=== PATIENT | female | born 1995 | race African-American/Black ===

== ENCOUNTER 2020-06-10 09:21 | Emergency (ER) | payer OTHER, SELFPAY ==
[2020-06-10 09:30] VITALS: BP 127/62; PULSE 79; RESP 16; TEMP 37.6; O2SAT 100
--- NOTE | 2020-06-10 09:35 | ED.FEMALEGU ---
HPI - Female Genitourinary General Chief complaint: Urogenital-Female Stated complaint: female problems Time Seen by Provider: 06/10/20 09:36 Source: patient and RN notes reviewed Mode of arrival: ambulatory Limitations: no limitations History of Present Illness HPI Narrative: 24 year old female who presents to [facility] care with complaints of vaginal discharge for the past 2 days that is yellowish with some pink in it and it is itchy and vaginal discomfort. Patient states that she called her doctor about a week ago and received a prescription of Flagyl which she started on the . Patient also states some urinary frequency and feelings like she is not emptying her bladder, denies any suprapubic tenderness or any flank pain. MD elicited complaint: vaginal discharge Onset (ago): day(s) (2) Location of symptoms: vaginal Severity scale (1-10): 3 (vaginal) Quality of pain: aching Consistency: intermittent Vaginal discharge: yellow and other (itching) Vaginal bleeding: other (rare scant pink in discharge) Urinary symptoms: Frequency and Difficulty Urinating (decrease urine output) Exacerbating factors: urination Relieving factors: none Treatment prior to arrival: OTC vaginal cream and other (took Flagyl prescription ) Sexual activity: Yes (same sex partner) Patient : No Date of Last Menstrual Period: 05/17/20 Related Data Allergies Allergy/AdvReac Type Severity Reaction Status Date / Time No Known Allergies Allergy Unknown Verified 06/10/20 09:41 Review of Systems Review of Systems: Narrative: CONSTITUTIONAL: Denies fever, chills, or sweats. EYES: Denies visual changes, redness, or discharge. ENT: Denies rhinorrhea, congestion, sore throat, or otalgia. CARDIOVASCULAR: Denies chest pain, palpitations, or edema. RESPIRATORY: Denies cough or dyspnea. GASTROINTESTINAL: Denies abdominal pain, nausea, vomiting, or diarrhea. GENITOURINARY: verbalizes some frequency and not feeling like emptying bladder. SKIN: Denies rash or itching. states some vaginal pain with discharge and itching. MUSCULOSKELETAL: Denies back pain, joint pain, or myalgia. NEUROLOGIC: Denies headache, numbness, or weakness. PSYCHIATRIC: Denies anxiety or depression. All systems reviewed & are unremarkable except as noted in HPI and below PMFSH Past Medical History Medical History (Updated 06/11/20 @ 00:00 by Background Daemon) ADHD Asthma Surgical History Surgical History (Updated 06/10/20 @ 09:41 by Nayely Alvarez NP) H/O repair of left rotator cuff History of tonsillectomy [place] teeth extracted Social History Social History (Updated 06/10/20 @ 09:42 by Nayely Alvarez NP) Tobacco type: e-cigarettes/vaping Gender identity (if verbalized by the patient): Female Sexual Orientation (if Verbalized by the Patient): Lesbian, [place], or Homosexual Comments At time of signature, agree with nursing past medical, surgical, social history. There is no relevant family history pertinent to the presenting complaint Exam Narrative: Exam Narrative: GENERAL: Well-appearing, well-nourished, and in no acute distress. HEAD: Normocephalic, atraumatic. EYES: PERRLA and EOMI. ENT: Nares clear, no rhinorrhea or epistaxis. Mucous membranes moist. NECK: Supple.no lymphadenopathy CHEST: Clear to auscultation. No respiratory distress.SAO2 100% HEART: Regular rate and rhythm. No murmur heard. Normal peripheral pulses. ABDOMEN: Soft, nontender, nondistended, normal active bowel sounds.No CVA tenderness. vaginal discomfort with yellowish white vaginal discharge with itching EXTREMITIES: Normal range of motion. No edema. SKIN: Warm, dry, no rash. NEURO: No focal deficits. Alert and oriented x3. Course Vital Signs Vital signs: Vital Signs Temperature 37.6 C 06/10/20 09:30 Pulse Rate 79 06/10/20 09:30 Respiratory Rate 16 06/10/20 09:30 Blood Pressure 127/62 06/10/20 09:30 Pulse Oximetry 100 06/10/20 09:30 Temperature 37.6 C 06/10/20 0
== END 2020-06-10 10:40 | disposition home or self-care (01) ==
PROVIDERS: Emergency Provider Registered Nurse; PCP Internal Medicine
DX: B37.9 Candidiasis, unspecified (principal); N39.0 Urinary tract infection, site not specified
CPT/HCPCS: 81003; 87077; 87086; 87088; 99213; G0463

== ENCOUNTER 2021-05-17 18:19 | Emergency (ER) | payer OTHER, SELFPAY ==
[2021-05-17 18:25] VITALS: BP 159/72; PULSE 82; RESP 18; TEMP 37.2; O2SAT 99
--- NOTE | 2021-05-17 18:25 | ED.SKABFB ---
HPI - Skin/Abscess/Foreign Bdy General Chief complaint: Skin/Abscess/Foreign Body Stated complaint: Rash on left Wrist Time Seen by Provider: 05/17/21 18:25 Source: patient, family and RN notes reviewed History of Present Illness HPI narrative: Patient is a 25-year-old female who presents the urgent care with complaints of a rash to the right wrist that showed up approximately 1 hour ago. Patient states that she googled it and was concerned that she may have scabies . No one else in the home has the rash. Patient has not taken anything [id number] for the rash. No other acute complaints. No acute distress noted. Patient aware of the plan of care. Some parts of this dictation were generated by voice recognition software and may contain typographical and/or grammatical inaccuracies. Related Data Allergies Allergy/AdvReac Type Severity Reaction Status Date / Time No Known Allergies Allergy Unknown Verified 06/10/20 09:41 Review of Systems Review of Systems: CONSTITUTIONAL: Denies fever, chills, or sweats. EYES: Denies visual changes, redness, or discharge. ENT: Denies rhinorrhea, congestion, sore throat, or otalgia. CARDIOVASCULAR: Denies chest pain, palpitations, or edema. RESPIRATORY: Denies cough or dyspnea. GASTROINTESTINAL: Denies abdominal pain, nausea, vomiting, or diarrhea. GENITOURINARY: Denies dysuria or hematuria. SKIN: Reports of a rash on the right wrist MUSCULOSKELETAL: Denies back pain, joint pain, or myalgia. NEUROLOGIC: Denies headache, numbness, or weakness. All other systems reviewed are negative, except as documented in HPI. [facility] Past Medical History Medical History (Updated 05/17/21 @ 18:35 by ALISA Zambrano) ADHD Asthma Surgical History Surgical History (Updated 06/10/20 @ 09:41 by Nayely Alvarez NP) H/O repair of left rotator cuff History of tonsillectomy [place] teeth extracted Social History Social History (Updated 06/10/20 @ 09:42 by Nayely Alvarez NP) Tobacco type: e-cigarettes/vaping Gender identity (if verbalized by the patient): Female Comments At the time of my signature, I reviewed and agree with the nursing past medical, surgical, social, and family history. There is no relevant family history pertinent to the patient complaint. Exam Narrative: GENERAL: This is a well-nourished, well-developed patient, in no apparent distress. HEAD: normocephalic, atraumatic. EYES: PERRL. Sclera clear/white. Vision is grossly intact. EARS: External ears normal NOSE: External nose normal with no obvious nasal discharge, nares without redness, no rhinorrhea. THROAT: Mucous membranes moist NECK: Neck supple CARDIOVASCULAR: Regular rate and rhythm without murmurs, gallops, or rubs. RESPIRATORY: Clear to auscultation. Breath sounds equal bilaterally. No wheezes, rales, or rhonchi. SKIN: Papular mildly erythemic scattered dermatitis noted to the right wrist NEURO: awake, alert, and oriented to person, place and time. There were no obvious focal neurologic abnormalities. EXTREMITIES: No clubbing, cyanosis, or edema. Course Vital Signs Vital signs: Vital Signs Temperature 98.9 F 05/17/21 18:25 Pulse Rate 82 05/17/21 18:25 Respiratory Rate 18 05/17/21 18:25 Blood Pressure 159/72 H 05/17/21 18:25 Pulse Oximetry 99 05/17/21 18:25 Temperature 98.9 F 05/17/21 18:25 Pulse Rate 82 05/17/21 18:25 Respiratory Rate 18 05/17/21 18:25 Blood Pressure 159/72 H 05/17/21 18:25 Pulse Oximetry 99 05/17/21 18:25 Reviewed-patient is informed that they may have pre-hypertension or hypertension based on a blood pressure reading in the department. I recommend the patient call the primary care provider listed on their discharge instructions or a physician of their choice this week to arrange follow-up for further evaluation of possible pre-hypertension or hypertension. MDM - Skin/Abscess/Foreign Bdy MDM Narrative Medical decision making narrative: Advi
== END 2021-05-17 18:38 | disposition home or self-care (01) ==
PROVIDERS: Emergency Provider Nurse Practitioner Family; PCP Internal Medicine
DX: L23.7 Allergic contact dermatitis due to plants, except food (principal); J45.909 Unspecified asthma, uncomplicated; F17.200 Nicotine dependence, unspecified, uncomplicated
CPT/HCPCS: 99213; G0463